=== PATIENT | female | born 1970 | race Two or more races ===

== ENCOUNTER 2019-06-24 13:07 | Emergency (ER) | payer OTHER ==
[2019-06-24 13:16] VITALS: BP 137/105; PULSE 91; TEMP 98; BMI 30.9
[2019-06-24] MEDS ORDERED: KETOROLAC TROMETHAMINE 60 MG/2 ML VIAL IM ONE (13:42)
[2019-06-24] MEDS ORDERED: KETOROLAC TROMETHAMINE 60 MG/2 ML VIAL ONE (13:42)
--- NOTE | 2019-06-24 13:51 | PDOC ---
History of Present Illness - General Chief Complaint: Injury Stated Complaint: SLIP AND FALL Time Seen by Provider: 06/24/19 13:20 History Source: Patient - History of Present Illness Occurred: reports: this morning Pain Location: reports: back, face, lower extremity Method of Injury: Yes: fall Past History - Past Medical History Allergies/Adverse Reactions: Allergies Allergy/AdvReac Type Severity Reaction Status Date / Time No Known Allergies Allergy Verified 06/24/19 13:16 Home Medications: Ambulatory Orders Colchicine [Colcrys] 0.6 mg PO DAILY #0 tablet 09/20/13 Cholecalciferol (Vitamin D3) [Vitamin D] 400 unit PO capsule 04/08/14 Cyanocobalamin/Folic Acid [Vitamin X53-Riyux Acid Tablet] 1 each PO tablet Ibuprofen [Motrin -] 800 mg PO Q6H #30 tablet 06/24/19 Tramadol HCl 50 mg PO Q6H #15 tablet MDD 200mg 06/24/19 COPD: No - Immunization History Immunization Up to Date: Yes - Psycho Social/Smoking Cessation Hx Smoking History: Never smoked Have you smoked in the past 12 months: No Hx Alcohol Use: No Drug/Substance Use Hx: No Substance Use Type: None Hx Substance Use Treatment: No Review of Systems - Review of Systems Respiratory: No: Shortness of Breath Cardiac (ROS): No: Chest Pain, Lightheadedness, Palpitations, Syncope ABD/GI: No: Nausea, Vomiting, Abdominal cramping Musculoskeletal: Yes: Back Pain, Joint Pain, Joint Swelling. No: Neck Pain Neurological: No: Headache, Dizziness *Physical Exam - Vital Signs Last Vital Signs Temp Pulse Resp BP Pulse Ox 98 F 91 H 18 137/105 H 100 06/24/19 13:13 06/24/19 13:13 06/24/19 13:13 06/24/19 13:13 06/24/19 13:13 - Physical Exam General Appearance: Yes: Appropriately Dressed, Mild Distress HEENT: positive: Normal Voice Neck: positive: Supple Respiratory/Chest: negative: Respiratory Distress Gastrointestinal/Abdominal: positive: Soft. negative: Tender Extremity: positive: Tender, Swelling (to L knee diffusely, LROM, NVI) Integumentary: positive: Other (superficial abrasion to nasal bridge, no swelling, deformity of nose and no e/o septal hematoma, No facial swelling or deformity otherwise) Neurologic: positive: Fully Oriented, Alert, Normal Mood/Affect ED Treatment Course - RADIOLOGY Radiology Studies Ordered: Category Date Time Status HIP & PELVIS-LEFT [RAD] Stat Radiology 06/24/19 13:42 Ordered KNEE 3 POS-LEFT [RAD] Stat Radiology 06/24/19 13:42 Ordered RIBS BILATERAL [RAD] Stat Radiology 06/24/19 13:41 Ordered Medical Decision Making - Medical Decision Making 06/24/19 13:43 48-year-old female, denies any past medical history and not on blood thinners, here with multiple injuries s/p fall this a.m. Patient states she tripped and fell down several steps in front of [place]. Complaining of mostly L mid back and L knee pain. Unable to bear weight since fall. States she also struck L side of face against stairs banister but no head injury otherwise and no LOC, headache, dizziness, nausea, vomiting or neck pain. No dizziness or chest pain prior to fall see exam Patella fx s/p mechanical fall Transverse fx on XR, no step-offs or significant fragment separation -Jose R and knee brace and crutches given -will d/w ortho 06/24/19 15:[address] Vail of orthopedics who recommend Jose R, knee brace and crutches. Pt improved w/ meds, rpt BP 130/80. Patient to follow-up in office in the a.m. Discharge - Discharge Information Problems reviewed: Yes Clinical Impression/Diagnosis: Patella fracture Qualifiers: Encounter type: initial encounter Fracture type: closed Fracture morphology: transverse Fracture alignment: nondisplaced Laterality: left Qualified Code(s): S82.035A - Nondisplaced transverse fracture of left patella, initial encounter for closed fracture Condition: Good Disposition: HOME - Additional Discharge Information Prescriptions: Ibuprofen [Motrin -] 800 mg PO Q6H #30 tablet Tramadol HCl 50 mg PO Q6H #15 tablet MDD 200mg - Follow up/Referral Referrals: Edin Calderón MD [Primary Care Provider] - - Patient Discharge Instructions Patient Printed Discharge Instructions: DI for Patella Fracture Additional Instructions: Your x-ray showed that you have a broken kneecap. Please keep Jose R on for swelling and elevate extremity at home. You were also placed in a knee brace and given crutches for weightbearing as tolerated We also sent pain medications to your pharmacy, take as directed Please call Dr. Vail of orthopedics tomorrow at [phone] - Post Discharge Activity
== END 2019-06-24 15:36 | disposition home or self-care (01) ==
LOC: JERFT 13:07
PROC: 3E0233Z Introduction of Anti-inflammatory into Muscle, Percutaneous Approach (ICD-10-PCS; principal; 2019-06-24)
PROC: 2W3RX1Z Immobilization of Left Lower Leg using Splint (ICD-10-PCS; 2019-06-24)
DX: S82.035A Nondisplaced transverse fracture of left patella, initial encounter for closed fracture (principal); W10.9XXA Fall (on) (from) unspecified stairs and steps, initial encounter; Y93.89 Activity, other specified; Y92.22 Religious institution as the place of occurrence of the external cause
CPT/HCPCS: 71111-TC-FY; 73523-TC-FY; 73562-TC-LT-FY; 99283-25

== ENCOUNTER 2019-06-27 06:19 | Day surgery (SDC) | payer OTHER ==
[2019-06-26 12:25] VITALS: BMI 30.9
[2019-06-27] MEDS ORDERED: PROPOFOL 20 ML ONE ×4 (07:23→09:00)
[2019-06-27] MEDS ORDERED: ROPIVACAINE HCL 0.5% 30ML VIAL ONE (07:30)
[2019-06-27] MEDS ORDERED: DEXMEDETOMIDINE HCL 200 MCG/2 ML IVPB ONE (07:30)
[2019-06-27] MEDS ORDERED: LIDOCAINE HCL 2% (20ML MULTI-DOSE VIAL) ONE (07:30)
[2019-06-27] MEDS ORDERED: MIDAZOLAM HCL 2 MG/2 ML SINGLE DOSE VIAL ONE ×3 (07:32→10:14)
[2019-06-27] MEDS ORDERED: ceFAZolin 2 GRAM PREMIX BAG IVPB ONE (08:28)
[2019-06-27] MEDS ORDERED: SODIUM CHLORIDE 0.9% P/F 10 ML VIAL IJ ONE ×2 (08:55→09:29)
[2019-06-27] MEDS ORDERED: ceFAZolin SODIUM 1 GM VIAL ONE (08:55)
[2019-06-27] MEDS ORDERED: KETOROLAC TROMETHAMINE 30 MG/1 ML VIAL ONE (08:55)
[2019-06-27] MEDS ORDERED: CEFAZOLIN 1 GM in DEXTROSE 5%-WATER - 50 ML IVPB ONE (09:32)
--- NOTE | 2019-06-27 09:32 | HP ---
[facility]ellite [facility] - Chief Complaint Chief Complaint: left knee pain - Past Medical History Allergies/Adverse Reactions: Allergies Allergy/AdvReac Type Severity Reaction Status Date / Time No Known Allergies Allergy Verified 06/27/19 07:52 ...LMP Comment: two months - Current Medications Current Medications: Home Medications Medication Instructions Recorded Cholecalciferol (Vitamin D3) 400 unit PO DAILY capsule 04/08/14 [Vitamin D] Cyanocobalamin/Folic Acid [Vitamin 1 each PO DAILY tablet 04/08/14 E47-Ogsqu Acid Tablet] Ibuprofen [Motrin -] 800 mg PO Q6H #30 tablet 06/24/19 Tramadol HCl 50 mg PO Q6H #15 tablet MDD 200mg 06/24/19 Satellite Physical Exam - Physical Examination Vital Signs: Vital Signs Period Temp Pulse Resp BP Sys/Carey Pulse Ox Last 24 Hr 97.8 F 106 20 118/85 98 General Appearance: Well Nourished, Well Developed, Alert & Oriented x3 ENT: Clear Lung: Normal air movement Extremities: Other (left knee- + swelling, + ttp ,decr rom, nvi, xrays show displaced patella fx) Neurological: Intact Satellite Impression/Plan - Impression/Plan Impression: left patella fx Operative Procedure: left patella ORIF Date to be Performed: 06/27/19
--- NOTE | 2019-06-27 09:36 | OP ---
Operative Note - Note: Operative Date: 06/27/19 ([facility] Pre-Operative Diagnosis: left patella fx Operation: left patella orif Post-Operative Diagnosis: Same as Pre-op Surgeon: Micky Vail Fuel Pilot Engineer: Chavo Drake Anesthesiologist/BATCH PLANT SUPERVISOR: Yehuda Snyder Anesthesia: General, Local Estimated Blood Loss (mls): 0 (tourniquet)
[2019-06-27 11:20] VITALS: BP 107/65; PULSE 82; TEMP 97.2
--- NOTE | 2019-06-27 11:25 | OP ---
DATE OF OPERATION: 06/27/2019 PREOPERATIVE DIAGNOSIS: Displaced left patella fracture. POSTOPERATIVE DIAGNOSIS: Displaced left patella fracture. PROCEDURE: Open reduction internal fixation, left patella fracture. SURGICAL ATTENDING: Micky Vail MD REVIEW TRAINER: ARYA Tariq ANESTHESIA: Regional and general. CLOSURE: Two 4.0 cannulated screws from Arthrex, 0 Vicryl for retinaculum, 2-0 for paratenon and subcutaneous, and 3-0 Monocryl subcuticular, skin glue for skin. COMPLICATIONS: None. CONDITION: To recovery room in stable condition. TOURNIQUET TIME: Approximately 45 minutes. DESCRIPTION OF PROCEDURE: The patient was taken to the operating room on June 27, 2019. Regional and general anesthesia was administered by the anesthesiologist. IV Kefzol was administered prophylactically prior to this case. Well-padded pneumatic tourniquet was placed on the left proximal thigh. Left lower extremity was prepped and draped in the usual sterile fashion. Leg was exsanguinated with an Esmarch bandage. Tourniquet inflated to 275 mmHg. A 6-cm longitudinal incision was made over the midline over the patella. Hemostasis was achieved with Bovie cautery. Sharp dissection was carried down to the patella. The paratenon was split and retracted both medially and laterally. The transverse nature of the fracture was developed. The periosteum was feathered back on both sides. Curettes and irrigation were used to clean up the fracture site, and the hematoma inside the knee was evacuated with irrigation. There were small retinacular tears both medially and laterally as well. Using a pointy reduction clamp, an anatomical reduction of the patella was obtained with good interdigitation of the fracture. Two guidewires from the 4.0 cannulated screw set were drilled from the inferior patella past the fracture into the proximal fragment. Preoperative placement was confirmed in the AP and lateral plane based on image intensifier. The screws were then measured for length and then screwed at the appropriate size length, 4.0 cancellous screws, achieving excellent compression across the fracture sites. The pins were removed. X-rays again showed good position of the screws and anatomic reduction of the fracture. The knee was irrigated with copious amounts of irrigation. The paratenon was closed using 2-0 Vicryl. The retinaculum was 1st closed using 0 Vicryl and then the subcutaneous was closed with 2-0 Vicryl and 3-0 Monocryl subcuticular with skin glue for skin. Sterile pressure dressing followed by a knee immobilizer was applied. Tourniquet was deflated. Total tourniquet time was approximately 45 minutes. No complications. Barry [id number]
[2019-06-27] MEDS ORDERED: oxyCODONE HCL 5 MG TABLET PO PRN ×2 (12:08)
[2019-06-27] MEDS ORDERED: ONDANSETRON 4 MG/2 ML VIAL IVPUSH PRN (12:08)
[2019-06-27] MEDS ORDERED: LACTATED RINGERS SOLUTION 1,000 ML IV SCH (12:15)
[2019-06-27] MEDS ORDERED: CEFAZOLIN 1 GM/D5W 1 GM/50 ML BAG ONE (12:39)
[2019-06-27] MEDS ORDERED: ceFAZolin SODIUM 1 GM VIAL IVPB ONE (12:40)
== END 2019-06-27 13:20 | disposition home or self-care (01) ==
LOC: JASU-SURG 06:19
PROVIDERS: ATTEND Orthopaedic Surgery
PROC: 0QSF04Z Reposition Left Patella with Internal Fixation Device, Open Approach (ICD-10-PCS; principal; 2019-06-27 08:00)
DX: S82.092A Other fracture of left patella, initial encounter for closed fracture (principal); X58.XXXA Exposure to other specified factors, initial encounter; Y93.9 Activity, unspecified; Y92.9 Unspecified place or not applicable
CPT/HCPCS: 76000-TC-FY; 84703; 94760